=== PATIENT | female | born 1935 | race Caucasian/White ===

== ENCOUNTER → 2016-08-06 | Outpatient (CLI) | payer OTHER, MEDICARE ==
--- NOTE | 2016-08-06 15:37 | MAMMOGRAPHY REPORT ---
BILATERAL DIGITAL DIAGNOSTIC MAMMOGRAM TOMOSYNTHESIS WITH CAD AND TARGETED BILATERAL ULTRASOUND: 08/06 CLINICAL HISTORY: 81-year-old woman with a personal history of right breast cancer status post lumpe ctomy, axillary lymph node dissection and radiation therapy, presents for bilateral screening mammog patrice and also to follow up faint microcalcifications near the surgical site in the right upper oute r quadrant. At the time of this diagnostic evaluation, the patient reported severe pain in the righ t axilla extending medially across the superior right breast. TECHNIQUE: Bilateral CC and MLO 2-D digital and tomosynthesis images, spot magnification right CC an d ML views were obtained. Current study was also evaluated with a Computer Aided Detection (CAD) sy stem. COMPARISON: Comparison is made to exams dated: 08/03/2015 ultrasound, 08/03/2015 mammogram, 01/05/2015 ultrasound, 01/05/2015 mammogram, 07/27/2014 mammogram, and 07/23/2013 mammogram - [facility]. BREAST COMPOSITION: There are scattered areas of fibroglandular density in both breasts. FINDINGS: A linear scar marker overlies the upper outer quadrant of the right breast. There is exp ected skin irregularity and architectural distortion in the area of prior surgery. Spot magnificati on views obtained near the lumpectomy bed demonstrate faint punctate microcalcifications mostly leonarda g the anterior aspect of the surgical site that appears similar when comparing to the spot magnifica tion views performed 08/03/2015. No significant increase in the number of calcifications. No other suspicious grouping or clustered microcalcifications are identified. There are mild vascular calci fications within the right breast. There are stable groupings and a few scattered punctate microcalcifications in the left breast. The re is an increasingly prominent, 8.4 x 9.5 mm mass in the anterior subareolar left breast, for which additional sonographic evaluation was performed. No focal area of architectural distortion or deve loping asymmetry is seen in the left breast. Targeted ultrasound was performed in the retroareolar and periareolar left breast. Additional ultra sound was performed in the areas of pain reported by the patient within the 12:00 right breast, uppe r outer quadrant and axilla. In an area of pain in the 12:00 right breast, 9 cm from the nipple, no discrete solid or cystic mass is identified. Within the right axilla in an area of pain, no suspic ious lymphadenopathy is seen. In the 11:00 periareolar/subareolar left breast, there is a lobulated circumscribed parallel isoecho ic solid-appearing mass measuring 8.1 x 3.2 x 6.9 mm. This likely correlates with the increasingly prominent mammographic mass and is indeterminate. A small tubular anechoic duct is seen adjacent an d this could possibly represent an intraductal mass. The patient also reported pain while ultrasoun ding over this mass. Definitive characterization with an ultrasound-guided core needle biopsy is re commended. IMPRESSION: ACR BI-RADS CATEGORY 4: SUSPICIOUS, TARGETED ULTRASOUND ACR BI-RADS CATEGORY 4: SUSPICI OUS 1. Left breast ultrasound guided core needle biopsy is recommended for a possible intraductal mass in the 11:00 periareolar left breast, thought to correlate with an increasingly prominent mammograph ic mass. 2. Stable mammographic appearance of the right breast including faint punctate microcalcifications near the anterior aspect of the lumpectomy bed in the upper outer quadrant. As these microcalcifica tions are not well seen on the standard mammographic views, it would be optimal if the patient remai brennon a diagnostic patient so that additional spot magnification views could be obtained in that area at the time of next screening evaluation. These results and recommendations were discussed with the patient at the time of the exam. Given th at this is a low risk procedure, I do not feel it necessary to discontinue Plavix prior to the biops y, and explained this to the patient. She tentatively scheduled the left breast biopsy prior to mainor ving our department. Approximately 10% of breast cancers are not detected with mammography. A negative mammographic repor t should not delay biopsy if a clinically suggestive mass is present. Lindsey Berrios M.D. ay/:08/06/2016 14:44:07 [employer] Post Officer: Kori Day, [facility] letter sent: Abnormal 4/5 BI-RADS Code: ACR BI-RADS Category 4: Suspicious Ultrasound BI-RADS: ACR BI-RADS Category 4: Suspic ious
== END | disposition home or self-care (01) ==
LOC: C.MAMM 13:19
PROVIDERS: ATTEND Internal Medicine Hematology & Oncology
DX: C50.919 Malignant neoplasm of unspecified site of unspecified female breast (principal); N63 Unspecified lump in breast; R92.0 Mammographic microcalcification found on diagnostic imaging of breast

== ENCOUNTER → 2016-08-14 | Outpatient (CLI) | payer OTHER, MEDICARE ==
--- NOTE | 2016-08-14 10:34 | Discharge Instructions ---
Discharge Instructions Procedure Procedure Date: Aug 14, 2016. Reason for visit: Left Mass. Discharge Discharge Date: Aug 14, 2016. Discharge Diagnosis: post left breast ultrasound guided core biopsy Medications Restart Stopped Medication(s): continue Plavix today Instructions Activity Recommendations: Additional Limitations (see below) Return to School/Work: no limitations Recommended Home Diet: No Limitations Provider Instructions: ACTIVITY RECOMMENDATIONS: * No lifting, pushing, pulling or exercising the affected side for three days. RETURN TO SCHOOL/WORK: * You may return to work/school after the procedure, but do not perform any strenuous activities for 24 to 48 hours. MEDICATIONS: * Tylenol (two 325 mg) every four to six hours if needed for mild pain (if not allergic to Tylenol). DIET: * Resume previous diet. SPECIAL CARE INSTRUCTIONS: * Keep biopsy site dry for 24 hours. May shower after 24 hours, but do not soak (bathe) incision. * May remove Tegaderm (plastic patch) tomorrow AFTER showering. * Leave the steri-strips on for one week. Allow the steri-strips to fall off by themselves. If not off after one week, you may remove them. You may place a Bandaid crosswise over the strips, if desired. * Apply ice 10 minutes on and 10 minutes off as needed. * Wear a bra at bedtime to sleep more comfortably for 2-3 days. * Your referring physician should have the results after approximately 5 to 7 business days. * Call for unusual bleeding, fever, drainage, etc or if you have any questions call [phone] during normal business hours or after hours call Dr Berrios, . FOLLOW UP VISIT: Follow-up with Referring Physician as scheduled. Samaria Juarez Recommendations: Call your doctor if: * Temperature above 101 degrees * Pain not relieved by pain medicine ordered * There is increased drainage or redness from any incision * You have any unanswered questions or concerns. Your Doctors Instructions noted above were prepared by provider Lindsey Berrios. Patient Signature Section: Patient Instructions Signature Page Montserratsravan Lopezmai Patient (or Guardian) Signature/Date: I have read and understand the instructions given to me by my caregivers. Caregiver/RN/Doctor Signature/Date: The above-named patient and/or guardian has received patient instructions on this date. + Original Patient Signature Page (only) stays with chart. Please make copy for patient.
--- NOTE | 2016-08-14 15:16 | MAMMOGRAPHY REPORT ---
ULTRASOUND GUIDED BIOPSY LEFT BREAST: 08/14/2016 CLINICAL HISTORY: Indeterminate parallel isoechoic solid-appearing mass in the 11:00 periareolar lef t breast. Patient presents for ultrasound-guided core biopsy. Personal history of right breast can cer status post breast conservation therapy. COMPARISON: Comparison is made to exams dated: 08/06/2016 ultrasound, 08/06/2016 mammogram, 08/03/2015 u ltrasound, 08/03/2015 mammogram, 01/05/2015 ultrasound, and 01/05/2015 mammogram - [facility]. PATIENT CONSENT: The procedure, risks and benefits were discussed with the patient and informed writ ten consent was obtained. Specific risks to this procedure include: bleeding, infection, puncture of adjacent structure, nontarget biopsy, sampling error, metal allergy and medication reaction. PROCEDURE DESCRIPTION: A time out was performed and the left breast was agreed as the site of biopsy . The skin was prepped and draped in the usual sterile fashion. The solid appearing mass in the 11:0 0 periareolar left breast was chosen as the target for biopsy. Subcutaneous and intraparenchymal 1% buffered lidocaine was administered as local anesthesia. A skin incision was made. Through the inci jonh, 4 samples were taken with a 14 gauge Achieve biopsy device. A ribbon shaped metallic marker wa s placed at the biopsy site. At the time of marker deployment, the biopsy marker clip was seen to m igrate along the tract proximal to the mass and therefore a second wing-shaped clip was placed centr ally within the mass biopsied. Hemostasis was achieved after manual compression. The patient tolera pavan the procedure well and there was no immediate complication. The samples were sent to the pathol ogy department in an appropriately labeled container. Postprocedure left CC and ML tomosynthesis images were obtained. There are 2 new metallic biopsy ma rkers and no significant hematoma in the 11:00 periareolar anterior left breast, at the site of the biopsied isoechoic solid-appearing mass seen on ultrasound. IMPRESSION: ULTRASOUND GUIDED BIOPSY 1. Status post ultrasound-guided core biopsy of an indeterminate solid appearing mass in the 11:00 periareolar left breast, with 2 biopsy markers placed at the site. The wing-shaped clip is located centrally within the biopsied mass, and there was slight migration of the ribbon-shaped clip at the time of deployment. 2. Clinical follow-up is recommended for the patient's reported pain and tenderness in her breasts. The patient will receive notification of the biopsy results from her referring physician. Lindsey Berrios M.D. ay/:08/14/2016 12:50:51 Attending Technologist: Kim MICHAELS)Noé), [facility] Air Quality Manager: Dr. Lindsey Berrios, [facility]
--- NOTE | 2016-08-14 15:18 | MAMMOGRAPHY REPORT ---
UNILATERAL LEFT DIGITAL DIAGNOSTIC MAMMOGRAM TOMOSYNTHESIS: 08/14/2016 CLINICAL HISTORY: Status post ultrasound-guided core needle biopsy in the 11:00 periareolar left tulio ast. Please refer to the report from left breast ultrasound guided core biopsy performed at the same time for full detail. IMPRESSION: POST PROCEDURE IMAGING FOR MARKER PLACEMENT Please refer to the report from left breast ultrasound guided core biopsy performed at the same time for full detail. Approximately 10% of breast cancers are not detected with mammography. A negative mammographic repor t should not delay biopsy if a clinically suggestive mass is present. Lidnsey Berrios M.D. ay/:08/14/2016 10:31:47 Operations Architect: Kim MICHAELS)(Kunal), [facility] BI-RADS Code: Post Procedure Imaging For Marker Placement
== END | disposition home or self-care (01) ==
LOC: C.MAMM 08:48
PROVIDERS: ATTEND Internal Medicine Hematology & Oncology
DX: N63 Unspecified lump in breast (principal)

== ENCOUNTER → 2017-08-09 | Outpatient (CLI) | payer OTHER, MEDICARE ==
--- NOTE | 2017-08-09 15:39 | MAMMOGRAPHY REPORT ---
BILATERAL DIGITAL DIAGNOSTIC MAMMOGRAM TOMOSYNTHESIS WITH CAD AND TARGETED RIGHT ULTRASOUND: 08/09/2017 CLINICAL HISTORY: History of right breast cancer status post breast conservation. Also history of be nign ultrasound-guided core needle biopsy of a left 11:00 breast mass performed August 2016. The maira ent reports continued right breast tenderness which she has had for years. TECHNIQUE: Breast tomosynthesis in addition to standard 2D mammography was performed. Current study was also evaluated with a Computer Aided Detection (CAD) system. Bilateral CC and MLO 2D and tomosyn thesis images were obtained. COMPARISON: Comparison is made to exams dated: 08/06/2016 ultrasound, 08/06/2016 mammogram, 08/03/2015 ma mmogram, 07/27/2014 mammogram, 07/23/2013 mammogram, and 07/22/2012 mammogram - [facility]. BREAST COMPOSITION: There are scattered areas of fibroglandular density in both breasts. FINDINGS: There are stable post surgical changes in the right lateral breast from prior lumpectomy, i ncluding stable density and architectural distortion at the lumpectomy bed. A linear scar marker den otes a scar on the right breast. 2 adjacent biopsy marker clips are seen within the left anterior br east from prior benign ultrasound-guided biopsy. There are no suspicious masses, calcifications, or areas of architectural distortion noted in either breast. Scattered bilateral benign-appearing calci fications are not significantly changed. When discussing results with the patient, she reported a possible lump and associated pain in the rig ht breast. Therefore, ultrasound was performed of the area of the palpable lump and pain pointed out by the patient, in the right breast at 9:00 approximately 8 cm from the nipple. No suspicious mau s or other suspicious sonographic abnormalities are evident. IMPRESSION: ACR BI-RADS CATEGORY 2: BENIGN, TARGETED ULTRASOUND ACR BI-RADS CATEGORY 2: BENIGN No suspicious mammographic or sonographic abnormality at the site of the palpable lump and pain point ed out by the patient in the right 9:00 far lateral breast. There is no mammographic evidence of mal ignancy in either breast. Recommend clinical follow-up for right breast complaints, and recommend ro utine bilateral mammograms in 1 year. The patient has been verbally notified of the results. Approximately 10% of breast cancers are not detected with mammography. A negative mammographic report should not delay biopsy if a clinically suggestive mass is present. Rain Perea M.D. ah/:08/09/2017 11:53:02 Analytics Developer: Kim MICHAELS)(Kunal), [facility] letter sent: Normal 1/2 BI-RADS Code: ACR BI-RADS Category 2: Benign Ultrasound BI-RADS: ACR BI-RADS Category 2: Benign
== END | disposition home or self-care (01) ==
LOC: C.MAMM 10:58
PROVIDERS: ATTEND Internal Medicine Hematology & Oncology
DX: R92.8 Other abnormal and inconclusive findings on diagnostic imaging of breast (principal)